=== PATIENT | male | born 1955 | race Caucasian/White ===

== ENCOUNTER 2020-11-06 07:11 | Day surgery (SDC) | payer MEDICARE, BC ==
[2020-10-30 16:31] LABS: BASOPHILS % (AUTO) 0.6 % (0-1); EOSINOPHILS # (AUTO) 0.1 X10'3 (0-0.9); EOSINOPHILS % (AUTO) 2.2 % (0-6); LYMPHOCYTES # (AUTO) 0.9 X10'3 (1.1-4.8); LYMPHOCYTES % (AUTO) 15.8 % (21-51); MEAN CORPUSCULAR HEMOGLOBIN 30.1 PG (27.0-31.0); MEAN CORPUSCULAR HGB CONC 33.8 g/dL (33.0-36.5); MEAN CORPUSCULAR VOLUME 89.2 FL (78-98); MEAN PLATELET VOLUME 7.4 FL (7.4-10.4); MONOCYTES # (AUTO) 0.5 X10'3 (0-0.9); MONOCYTES % (AUTO) 8.5 % (2-12); NEUTROPHILS % (AUTO) 72.9 % (42-75); PRE OP HEMATOCRIT 42.8 % (42.0-52.0); PRE OP HEMOGLOBIN 14.4 g/dL (14.0-17.9); PRE OP PLATELET COUNT 235 X10'3 (140-440); RED BLOOD COUNT 4.79 X10'6 (4.70-6.10); RED CELL DISTRIBUTION WIDTH 14.1 % (11.5-14.5)
[2020-10-30 16:46] LABS: ALBUMIN/GLOBULIN RATIO 1.4 (1.1-1.5); ALKALINE PHOSPHATASE 58 IU/L (46-116); BLOOD UREA NITROGEN 17 MG/DL (7-18); BUN/CREATININE RATIO 15.7 (5.4-32.0); CALCIUM 8.8 MG/DL (8.5-10.1); CHLORIDE 109 MMOL/L (99-107); CREATININE 1.08 MG/DL (0.60-1.10); PRE OP ALT 24 U/L (30-65); PRE OP ANION GAP 8 (8-16); PRE OP AST 19 U/L (10-37); PRE OP BILIRUB, TOTAL 0.8 MG/DL (0.0-1.0); PRE OP GLUCOSE 93 MG/DL (70-104); PRE OP SODIUM 144 MMOL/L (135-145); TOTAL CARBON DIOXIDE 27.4 MMOL/L (24-32); TOTAL PROTEIN 6.9 G/DL (6.4-8.2); eGFR 69 ML/MIN
[2020-11-06] VITALS (16 sets, daily range): BP systolic 96–137; BP diastolic 58–84
[~2020-11-06] VITALS: Ht 180.3 cm; Wt 87.7 kg
[~2020-11-06 07:11] MED LIST: HYDROcodone/acetaminophen 10/325mg tab PO PRN; HYDROmorphone 1 mg/ml syringe IV PRN; HYDROmorphone inj. 0.5 MG/0.5 ML DISP.SYRIN IV PRN; NO HOME MEDS; acetaminophen 325mg tablet PO ONE; acetaminophen 325mg tablet PO PRN; bisacodyl 10mg suppository rectal RC PRN; ceFAZolin 2gm in dextrose, iso 50 ML IV ONE; celeCOXIB 100mg capsule PO ONE; diphenhydrAMINE 25mg capsule PO PRN; famotidine 20mg tablet PO ONE; gabapentin 300mg capsule PO ONE; magnesium hydroxide 30ml (MOM) UD suspension PO PRN; metoclopramide 5 mg/ml inj IV ONE; ondansetron/PF 4mg/2ml inj IV PRN; oxyCODONE SR 10mg (sust. release) tab -2 tabs (20mg) PO ONE; potassium cl 20mEq in 1/2 NS 1,000 ML IV SCH; ringers solution, lacted 1,000 ML IV SCH; tranexamic acid 1gm/0.7% sal. 100 ML IV ONE; vancomycin 1,500 MG in NS 300ml IV soln IV ONE
[2020-11-06] MEDS ORDERED: vancomycin 1,000mg inj ONE (08:51)
[2020-11-06] MEDS ORDERED: ROPIVAcaine inj 250 MG, CloNIDine/PF inj 80 MCG, epiNEPHrine inj 0.5 MG in normal salin... IV ONE (09:00)
[2020-11-06] MEDS ORDERED: fentaNYL/PF 50MCG/1 ML 2ML syringe ONE (09:18)
[2020-11-06] MEDS ORDERED: MIDAZolam 5mg/5ml vial ONE (09:19)
[2020-11-06] MEDS ORDERED: phenylephrine 10mg/ml inj. ONE (10:28)
[2020-11-06] MEDS ORDERED: diphenhydrAMINE 50 mg/ml inj ONE (10:28)
[2020-11-06] MEDS ORDERED: glycopyrrolate 0.2mg/ml inj ONE (10:28)
[2020-11-06] MEDS ORDERED: propofol inj 20 ML IV ONE (10:28)
[2020-11-06] MEDS ORDERED: ePHEDrine 50MG/ML INJ. ONE (10:28)
[2020-11-06] MEDS ORDERED: LIDOcaine 1%/PF 5ML 10 MG/ML VIAL ONE (10:28)
--- NOTE | 2020-11-06 10:45 | NUR ---
ADMITTED TO PACU FROM OR ACCOMPANIED BY ANESTHESIA. INTIAL PHYSICAL ASSESSMENT DONE AND RECORDED. REPORT RECEIVED FROM ANESTHESIA.
--- NOTE | 2020-11-06 12:15 | NUR ---
PACU DISCHARGE CRITERIA MET, REPORT GIVEN TO FLOOR. DENIES PAIN OR DISCOMFORT, TRANSFERRED TO ROOM IN STABLE GOOD CONDITION.
--- NOTE | 2020-11-06 13:00 | NUR ---
patient orientated to room. VSS, alert and orientated. dressing to right hip CDI. satish in place.
[2020-11-06] MEDS ORDERED: tranexamic acid inj. 880 MG in normal saline 100ml IV soln 100 ML IV ONE (15:00)
[2020-11-06] MEDS ORDERED: ceFAZolin 2gm in dextrose, iso 50 ML IV SCH (16:00)
--- NOTE | 2020-11-06 18:30 | NUR ---
patient seen by PT managed to ambulate, and Ok per PT to discharge home see note. Dr Ishaan cummings paged DC order given.ll Dc instructions given to patient. patient able to walk and void in BR with minimal assist. Dressing CDI. [place] drain in place. patient DC home via private car with spouse in stable condition.
[2020-11-06] MEDS ORDERED: ascorbic acid 500mg tablet PO SCH (20:00)
[2020-11-06] MEDS ORDERED: sennosides 8.6mg tablet PO SCH (21:00)
[2020-11-06] MEDS ORDERED: gabapentin 300mg capsule PO SCH (21:00)
[2020-11-06] MEDS ORDERED: VANCOMYCIN 1,500MG inj. 1,500 MG in normal saline 500ml IV soln 300 ML IV SCH (22:00)
[2020-11-07] MEDS ORDERED: multivitamins, therapeutics tablet PO SCH (08:00)
[2020-11-07] MEDS ORDERED: celeCOXIB 100mg capsule PO SCH (20:00)
== END 2020-11-06 17:45 | disposition home or self-care (01) ==
LOC: PAS 07:11 → SUR 3N 12:17 → PAS 17:45
PROVIDERS: ATTEND Orthopaedic Surgery
DX: M16.11 Unilateral primary osteoarthritis, right hip (principal); J45.909 Unspecified asthma, uncomplicated; Z20.828 Contact with and (suspected) exposure to other viral communicable diseases; Z96.642 Presence of left artificial hip joint; Z98.890 Other specified postprocedural states; Z72.89 Other problems related to lifestyle; Z79.82 Long term (current) use of aspirin; Z79.899 Other long term (current) drug therapy
CPT/HCPCS: 27130; 36415; 72170; 80053; 82948; 85025; 86885; 86900; 86901; 87081; 87635; 97116; 97161; 97530; C1776; J0171; J0735; J1200; J2250; J2370; J2704; J2765; J3010; J3370; J7040; J7120; A7000; G0378; J2795; J3480; J3490